=== PATIENT | male | born 1985 | race Caucasian/White ===

== ENCOUNTER 2019-07-20 16:12 | Emergency (ER) | payer BC ==
[~2019-07-20] VITALS: Ht 185.4 cm; Wt 102.7 kg
[2019-07-20 17:00] LABS: BASOPHILS # (AUTO) 0.09 x10^3/uL (0-0.1); BASOPHILS % (AUTO) 1 % (0-1); EOSINOPHILS # (AUTO) 0.12 x10^3/uL (0-0.4); EOSINOPHILS % (AUTO) 2 % (1-7); LYMPHOCYTES # (AUTO) 2.04 x10^3/uL (1-3.4); LYMPHOCYTES % (AUTO) 26 % (22-44); MD NO; MEAN CORPUSCULAR HGB CONC 34.5 g/dL (33.2-36.2); MEAN CORPUSCULAR VOLUME 86.9 fL (81-97); MEAN PLATELET VOLUME 9.4 fL (7.4-10.4); MONOCYTES # (AUTO) 0.73 x10^3/uL (0.2-0.8); MONOCYTES % (AUTO) 9 % (2-9); NEUTROPHILS # (AUTO) 4.78 x10^3/uL (1.8-6.8); NEUTROPHILS % (AUTO) 62 % (42-75); PLATELET COUNT 220 x10^3/uL (130-400); RED CELL DISTRIBUTION WIDTH 13.5 % (9.4-14.8)
[2019-07-20 17:06] LABS: ALANINE AMINOTRANSFERASE 68 U/L (12-78); ANION GAP 8 mmol/L (5-15); CALCIUM 9.9 mg/dL (8.5-10.1); CHLORIDE 105 mmol/L (98-107); CREATININE 1.37 mg/dL (0.7-1.3)
[2019-07-20 17:08] LABS: ALKALINE PHOSPHATASE 77 U/L (45-117); BILIRUBIN,TOTAL 1.5 mg/dL (0.2-1.0); TOTAL PROTEIN 8.6 g/dL (6.4-8.2)
--- NOTE | 2019-07-20 17:22 | NUR ---
PATIENT RELATIONS COORDINATOR: PT TO ROOM FROM [facility]
--- NOTE | 2019-07-20 17:55 | NUR ---
PATIENT ARRIVES TO ER WITH WITH COMPLAINTS OF ABDOMINAL PAIN THAT BEGAN THREE DAYS AGO. HE REPORTS NO VOMITING, SOME NAUSEA THAT BEGAN THIS MORNING. HAS HAD APPENDECTOMY.
[2019-07-20] MEDS ORDERED: SODIUM CHLORIDE 0.9% 1,000ML IVBOLUS ONE (18:00)
[2019-07-20] MEDS ORDERED: FAMOTIDINE 20 MG/2 ML IV ONE (18:00)
[2019-07-20] MEDS ORDERED: SERT50TA28 PO (18:00)
[2019-07-20] MEDS ORDERED: MAALOX/HYOSCYAMINE/LIDOCAINE 45 ML BTL PO ONE (18:00)
[2019-07-20] MEDS ORDERED: SODIUM CHLORIDE FLUSH 10ML SYR IVF ONE (18:00)
--- NOTE | 2019-07-20 18:01 | NUR ---
PATIENT UNABLE TO VOID AT THIS TIME. STATES THAT HE HASN'T BEEN EATING MUCH. TALKED TO MD AND GOT ORDER FOR IV FLUIDS. PATIENT GETTING LITER AT THIS TIME. ULTRASOUND AT BEDSIDE. ON MONITOR, RAILS UP.
[2019-07-20] MEDS ORDERED: MAALOX/HYOSCYAMINE/LIDOCAINE 45 ML BTL ONE (18:03)
[2019-07-20] MEDS ORDERED: FAMOTIDINE 20 MG/2 ML ONE (18:03)
--- NOTE | 2019-07-20 18:10 | NUR ---
Note aj in EDM - 07/20/19 at 1816 by TAMIR PATIENT CONTINUES TO HAVE SPASMS. TALKED TO ORDER FOR VALIUM, MEDICATING. ON MONITOR, RAILS UP.
--- NOTE | 2019-07-20 18:57 | NUR ---
report from tonie laura. assuming care at this time.
[2019-07-20 19:13] VITALS: BP 110/75
--- NOTE | 2019-07-20 19:13 | NUR ---
PT RESTING IN ROOM WITH SO AT BS. VSS. PT STATES NO PAIN AT THIS TIME. UA COLLECTED AND SENT. NO NEEDS EXPRESSED. CALL LIGHT WITHIN [facility]. AWAITING RESULTS.
[2019-07-20 19:34] LABS: MICROSCOPIC NOT IND
[2019-07-20 19:38] LABS: CULTURE INDICATED? NO
== END 2019-07-20 20:20 | disposition home or self-care (01) ==
LOC: ED 17:39
DX: K29.00 Acute gastritis without bleeding (principal); K82.9 Disease of gallbladder, unspecified; Z90.49 Acquired absence of other specified parts of digestive tract
CPT/HCPCS: 36415; 76700; 80053; 81003; 83690; 85025; 96361; 96374; 99284; J3490; J7030